=== PATIENT | male | born 2005 | race Caucasian/White ===

== ENCOUNTER 2024-11-10 23:00 | Emergency (ER) | payer SELFPAY ==
--- NOTE | 2024-11-10 00:25 | RAD_ITS ---
PROCEDURE: CHEST 3 VIEW 11/11/2024 REASON FOR EXAM: RIGHT SIDED CP, HX PTX TECHNIQUE: Procedure Code: RADCXRPALATOB Modality: DX Procedure: CHEST 3 VIEW COMPARISON: None. FINDINGS: The lungs are expanded. There is no demonstrated parenchymal abnormality. There is no demonstrated pleural abnormality. Normal heart and pericardium. Normal mediastinum and ambrocio. Normal visualized pulmonary arteries. Normal visualized aortic arch and descending thoracic aorta. Normal visualized thoracic spine. Normal visualized ribs, clavicles, and shoulders. There is no demonstrated abnormality of the visualized soft tissue structures of the upper abdomen. RAD/Chest 3 View IMPRESSION: No evidence for acute abnormality. Reading Location: [facility]
[2024-11-10 23:01] VITALS: BP 142/100; PULSE 79; RESP 18; TEMP 37; O2SAT 97; BMI 17.6
--- NOTE | 2024-11-10 23:42 | EDS_ITS ---
HPI History of Present Illness Chief Complaint: Chest Other Informant: patient Narrative Narrative: Patient is a 18-year-old male presenting with chest pain and dyspnea following a sudden movement at work. 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 - Reports a burning sensation in the chest and initial dyspnea, which has since improved. - Pain is primarily located at the bottom of the ribs on the right and intensifies with inhalation, radiating towards the center of the right shoulder blade. - Denies abdominal pain. - Describes pain as more pronounced with light palpation than with deeper pressure. - Has experienced right-sided soreness for 1-2 days prior to this incident. - History of a similar event 2 years ago resulting in a left pneumothorax (<20%) without the need for a chest tube. - Denies current dyspnea. PFS PFS Medical History no medical history no medical history Home Medications ?Medication ?Instructions ?Recorded ?Last Taken ?Type NK 11/10/24 Unknown History Allergy/AdvReac Type Severity Reaction Status Date / Time No Known Allergies Allergy Verified 11/10/24 23:03 Social History Smoking Status: Current every day smoker tobacco type: e-cigarettes ROS ROS ED ROS Narrative Cardiovascular: (+) chest pain Respiratory: (-) shortness of breath Gastrointestinal: (+) nausea, (-) abdominal pain Musculoskeletal: (+) right rib pain, (+) upper back pain EXAM Physical Exam Narrative Exam Narrative: General: No acute distress. Converses in full sentences. Resp: Breath sounds normal, possible diminished breath sounds in upper lung elias. No splinting with deep inspiration. Trachea midline. Abd: Tenderness to light palpation in right lower anterior ribs, less tenderness with deeper palpation. Const Vital Signs: 11/10/24 23:01 11/10/24 23:17 11/11/24 01:01 Temperature 98.6 F Temperature Source Oral Pulse Rate 79 52 L Respiratory Rate 18 16 Respiratory Effort Normal Non-Labored Respiratory Pattern Normal Blood Pressure 142/100 H 114/79 Blood Pressure Mean 114 90 Pulse Ox 97 97 Oxygen Delivery Method Room Air Room Air Positive well nourished and well developed General Appearance ED: well developed and NAD Cardio regular rate, regular rhythm and no murmurs Rate: Negative for bradycardia or tachycardic Peripheral Pulses: pulses 2+ throughout GI normal to inspection, nondistended, normoactive bowel sounds, soft to palpation and non-tender Extremity normal to inspection General Extremety ED: Negative for edema General Extremity: Negative for edema Neuro oriented x3, CN's II-XII intact bilaterally, no sensory deficits noted and gait normal MDM MDM MDM Narrative Medical decision making narrative: The patient was sent for inspiratory and expiratory films. A total of four views were obtained, including two lateral views. Based on my interpretation, there is no pneumothorax. The patient was given ibuprofen, and his vital signs are normal. He is ambulatory and doing well. I suspect that if radiology concurs, these findings are consistent with intercostal or chest wall strain and possibly involvement of the right upper back rhomboids, where he also feels discomfort. The patient has been reassured. If the X-rays are read by radiology confirming this, the plan is to discharge him with supportive care and follow-up. We will discuss reasons for him to return. Discharge Plan Triage Chief Complaint: Chest Other ED Provider: Fito Beth Dx/Rx/DC Orders Clinical Impression: Strain of chest wall, Acute thoracic myofascial strain Instructions: ED Strain Chest Wall Prescriptions: No Action NK Primary Care Provider: Care Physician,No Primary Referrals: Doctor,Your [Non-Staff, None] - As Needed Print Language: Brazilian Disposition Disposition: Home, Self Care
[2024-11-11 01:01] VITALS: BP 114/79; PULSE 52; RESP 16; O2SAT 97
[2024-11-11 02:42] VITALS: BP 138/78; PULSE 60; RESP 18; TEMP 36.6; O2SAT 98
== END 2024-11-11 02:43 | disposition home or self-care (01) ==
PROVIDERS: Emergency Provider Emergency Medicine; Visit Provider Emergency Medicine
DX: S29.011A Strain of muscle and tendon of front wall of thorax, initial encounter (principal); R06.00 Dyspnea, unspecified; S29.012A Strain of muscle and tendon of back wall of thorax, initial encounter; X50.9XXA Other and unspecified overexertion or strenuous movements or postures, initial encounter; Y99.0 Civilian activity done for income or pay; F17.290 Nicotine dependence, other tobacco product, uncomplicated
CPT/HCPCS: 71047; 99282; A4216